=== PATIENT | male | born 1975 | race Caucasian/White ===

== ENCOUNTER 2017-03-01 19:36 | Emergency (ER) | payer SELFPAY ==
--- NOTE | 2017-03-01 19:39 | EDPHY ---
H & P Time Seen by Provider: 03/01/17 19:38 Medical Decision Making ED Course/Re-evaluation: CHIEF COMPLAINT: Med clear. HISTORY OF PRESENT ILLNESS: The patient is a 48-year-old male who presents via EMS in [employer] custody for med clear for retirement. He has no injuries and no medical complaints at this time. REVIEW OF SYSTEMS: A 10 point review of systems was performed and is negative with the exception of the elements mentioned in the history of present illness. PHYSICAL EXAM: HR, BP, O2 Sat, RR. Temp noted General Appearance: Alert, well hydrated, appropriate, and non-toxic appearing. Head: Atraumatic without scalp tenderness or obvious injury Eyes: Pupils equal, round, reactive to light and accommodation, EOMI, no trauma , no injection. Ears: Clear bilaterally, no perforation, normal landmarks Nose: Atraumatic, no rhinorrhea, clear. Throat: There is no erythema or exudates, no lesions, normal tonsils, mucus membranes moist. Neck: Supple, 2+ carotid upstroke, nontender, no lymphadenopathy. Respiratory: No retractions, no distress, no wheezes, and no accessory muscle use. Lungs are clear to auscultation bilaterally. Cardiovascular: Regular rate and rhythm, no murmurs, rubs, or gallops. Bilateral carotid, radial, dorsalis pedis, and posterior tibial pulses intact. Good capillary refill all extremities. Gastrointestinal: Abdomen is soft, nontender, non-distended, no masses, no rebound, no guarding, no peritoneal signs. Musculoskeletal: Normal active ROM of all extremities, atraumatic. Neurological: Alert, appropriate, and interactive. The patient has normal DTRs and non-focal cranial nerves, motor, sensory, and cerebellar exam. Skin: No rashes, good turgor, no nodules on palpation. Past medical history: Denies. Past surgical history: Denies. Family history: N/A. Social history: Here alone. MEDICAL DECISION MAKING: Patient arrives for retirement med clearance. He has no injuries and no medical complaints at this time. He has a normal exam. I have cleared him for retirement. I spoke with the retirement nurse and informed them of the patient's arrival. Departure - Departure Disposition: Home, Routine, Self-Care Clinical Impression: Medical clearance for incarceration Condition: Good Instructions: Medical Clearance for Psychiatric Care (ED) Additional Instructions: you have been medically cleared for retirement. Return for any serious worsening of condition. Referrals: [facility],. [Clinic] - As per Instructions Report Scribed for: Bobby Rice Report Scribed by: Raul Rodriguez Date of Report: 03/01/17 Time of Report: 19:42
== END 2017-03-01 19:49 | disposition home or self-care (01) ==
DX: Z02.89 Encounter for other administrative examinations (principal)